=== PATIENT | male | born 1935 | race Two or more races ===

== ENCOUNTER 2024-06-09 11:58 | Emergency (ER) | payer OTHER ==
[~2024-06-09] VITALS: Ht 167.6 cm; Wt 72.6 kg
[2024-06-09] MEDS ORDERED: NEURONTIN600 M1 (12:18)
[2024-06-09] MEDS ORDERED: 0.9 % SODIUM CHLORIDE 1,000 ML IV SCH (12:45)
[2024-06-09 13:08] LABS: HEMOGLOBIN 13.6 g/dL (13-16.00); MEAN CELL VOLUME 93.2 fL (80.0-100.00); MEAN CORPUSCULAR HGB CONC 33.3 g/dl (32.0-36.0)
[2024-06-09 13:09] LABS: PLATELET COUNT 112 K/uL (150-450)
[2024-06-09 13:31] LABS: INR 1.04; PROTHROMBIN TIME 11.3 SECONDS (9.0-11.5)
[2024-06-09 14:01] LABS: ALBUMIN 3.9 gm/dL (3.4-5.0); BILIRUBIN TOTAL 1.23 mg/dL (0.3-1.2); CREATININE SERUM 1.2 mg/dL (0.70-1.30); GFR 57.14; GLOBULINA 3.4 G/DL (2.4-3.5); POTASSIUM 4.32 mEq/L (3.5-5.1); TOTAL PROTEIN 7.3 gm/dL (6.4-8.2)
[2024-06-09] MEDS ORDERED: MEDI-MECLIZINE25 MG PO (15:47)
[2024-06-09 16:25] VITALS: BP 166/72; O2SAT 100
== END 2024-06-09 16:27 | disposition home or self-care (01) ==
LOC: EDBD 12:01 → ER 12:01
PROVIDERS: General Practice
DX: R42 Dizziness and giddiness (principal); Z20.822 Contact with and (suspected) exposure to COVID-19